=== PATIENT | male | born 1990 | race Two or more races ===

== ENCOUNTER 2023-07-21 23:06 | Emergency (ER) | payer OTHER ==
[~2023-07-21] VITALS: Ht 180.3 cm; Wt 118.2 kg
[2023-07-21] MEDS: ceFAZolin 1GM/50ML 50 ML IV ONE (23:22)
[2023-07-21] MEDS: TETANUS-DIPTH-ACEL PERTUSSIS 0.5ML SYR Tdap IM ONE (23:24)
[2023-07-21] MEDS: MORPHINE SULFATE 4 MG/ML SYR/VIAL IV ONE (23:35)
[2023-07-21] MEDS: ONDANSETRON HCL 4 MG/2 ML VIAL IV ONE (23:35)
[2023-07-22] MEDS: MORPHINE SULFATE 4 MG/ML SYR/VIAL IV ONE (00:07)
[2023-07-22] MEDS: SODIUM CHLORIDE 0.9% 2,000 ML IV ONE (00:15)
[2023-07-22 00:30] VITALS: PULSE 103; RESP 18; O2SAT 95
[2023-07-22] MEDS: HYDROmorphone HCL 2 MG/ML VL/or syr IV ONE (00:50)
[2023-07-22 03:40] VITALS: BP 139/84; PULSE 98; RESP 18; TEMP 98; O2SAT 98
== END 2023-07-22 04:07 | disposition short-term general hospital (02) ==
LOC: ER 23:06
DX: S68.621A Partial traumatic transphalangeal amputation of left index finger, initial encounter (principal); V86.56XA Driver of dirt bike or motor/cross bike injured in nontraffic accident, initial encounter; Y93.89 Activity, other specified; Y92.89 Other specified places as the place of occurrence of the external cause; Y99.8 Other external cause status
CPT/HCPCS: 73130; 90471; 90715; 96361; 96365; 96375; 96376; 99285; J0690; J1170; J2270; J2405; J7030